=== PATIENT | male | born 1985 | race African-American/Black ===

== ENCOUNTER 2016-08-01 12:51 | Emergency (ER) | payer OTHER ==
[2016-08-01 12:50] LABS: URINE APPEARANCE CLEAR; URINE BILIRUBIN NEG (NEG); URINE BLOOD NEG (NEG); URINE COLOR YELLOW; URINE GLUCOSE NEG (NEG); URINE KETONE NEG (NEG); URINE LEUKOCYTE ESTERASE TRACE (NEG); URINE NITRATE NEG (NEG); URINE PH 5.5 (5-8); URINE PROTEIN NEG (NEG); URINE SPECIFIC GRAVITY 1.022 (1.003-1.035); URINE UROBILINOGEN 0.2 MG/DL (NEG)
[2016-08-01 12:54] LABS: URBCS1 AUWI 0-2 /[HPF] (0-2); URINE BACTERIA AUWI NEG (NEGATIVE); URINE SQUAMOUS EPITHELIAL CELL NONE SEEN /[HPF]; UWBCS1 AUWI 0-2 (0-5)
[2016-08-01 13:03] LABS: CULTURE INDICATED? NO; URINE SOURCE CLEAN CATCH; URINE TRICHOMONAS NEGATIVE
[2016-08-03 12:22] LABS: CHLAMYDIA TRACH Not Detected (Not Detected); N GONOR Not Detected (Not Detected)
== END 2016-08-01 13:49 | disposition home or self-care (01) ==
LOC: CFTX 12:51
PROVIDERS: Emergency Medicine
DX: R36.1 Hematospermia (principal)
CPT/HCPCS: 81003; 87491; 87591; 96372; 99283; J0696